=== PATIENT | female | born 1935 | race Caucasian/White ===

== ENCOUNTER → 2017-01-12 | Outpatient (CLI) | payer MEDICARE, BC ==
[2017-01-12 12:27] LABS: ANION GAP 17 (5-19); BLOOD UREA NITROGEN 17 mg/dL (7-20); CALCIUM 9.9 mg/dL (8.4-10.2); CARBON DIOXIDE 20 mmol/L (22-30); CHLORIDE 107 mmol/L (98-107); GLUCOSE 98 mg/dL (75-110); POTASSIUM 4.1 mmol/L (3.6-5.0); SODIUM 143.8 mmol/L (137-145)
== END ==
LOC: OD 10:52
PROVIDERS: ATTEND Internal Medicine Cardiovascular Disease
DX: Z79.899 Other long term (current) drug therapy (principal)
CPT/HCPCS: 36415; 80048; 83735

== ENCOUNTER → 2017-01-16 | Outpatient (CLI) | payer MEDICARE, BC ==
[2017-01-16 14:22] LABS: ANION GAP 16 (5-19); BLOOD UREA NITROGEN 17 mg/dL (7-20); CALCIUM 10.1 mg/dL (8.4-10.2); CARBON DIOXIDE 26 mmol/L (22-30); CHLORIDE 102 mmol/L (98-107); CREATININE RESULT 0.63 mg/dL (0.52-1.25); GLUCOSE 96 mg/dL (75-110); POTASSIUM 3.5 mmol/L (3.6-5.0); SODIUM 143.5 mmol/L (137-145)
[2017-01-16 14:39] LABS: ANION GAP 16 (5-19); BLOOD UREA NITROGEN 17 mg/dL (7-20); CALCIUM 10.1 mg/dL (8.4-10.2); CARBON DIOXIDE 26 mmol/L (22-30); CHLORIDE 102 mmol/L (98-107); CREATININE RESULT 0.63 mg/dL (0.52-1.25); GLUCOSE 96 mg/dL (75-110); POTASSIUM 3.5 mmol/L (3.6-5.0); SODIUM 143.5 mmol/L (137-145)
[2017-01-16 14:40] LABS: FREE T3 4.29 pg/mL (2.77-5.27)
[2017-01-16 14:54] LABS: THYROID STIMULATING HORMONE 0.15 uIU/mL (0.47-4.68)
[2017-01-16 15:08] LABS: FREE T3 4.29 pg/mL (2.77-5.27); THYROID STIMULATING HORMONE 0.15 uIU/mL (0.47-4.68)
== END ==
LOC: OD 12:45
PROVIDERS: ATTEND Internal Medicine Cardiovascular Disease
DX: E03.9 Hypothyroidism, unspecified (principal); R00.2 Palpitations
CPT/HCPCS: 80048; 83735; 84439; 84443; 84481

== ENCOUNTER → 2017-05-01 | Outpatient (CLI) | payer MEDICARE, BC ==
[2017-05-01 13:03] LABS: ALANINE AMINOTRANSFERASE 31 U/L (9-52); ALBUMIN 4.7 g/dL (3.5-5.0); ALKALINE PHOSPHATASE 73 U/L (38-126); ANION GAP 15 (5-19); ASPARTATE AMINO TRANSFERASE 28 U/L (14-36); BILIRUBIN,DIRECT 0.3 mg/dL (0.0-0.4); BILIRUBIN,TOTAL 0.7 mg/dL (0.2-1.3); BLOOD UREA NITROGEN 25 mg/dL (7-20); CALCIUM 9.7 mg/dL (8.4-10.2); CARBON DIOXIDE 25 mmol/L (22-30); CHLORIDE 104 mmol/L (98-107); CHOLESTEROL 225.44 mg/dL (0-200); CREATININE RESULT 0.67 mg/dL (0.52-1.25); Direct HDL 45 mg/dL (>40); GLUCOSE 106 mg/dL (75-110); POTASSIUM 3.7 mmol/L (3.6-5.0); SODIUM 143.6 mmol/L (137-145); TOTAL PROTEIN 7.8 g/dL (6.3-8.2); TRIGLYCERIDES 391 mg/dL (<150)
[2017-05-01 13:18] LABS: DIRECT LDL 35 mg/dL (<100)
[2017-05-01 13:24] LABS: VLDL CHOLESTEROL 78.2 mg/dL (10-31)
== END ==
LOC: OD 11:19
PROVIDERS: ATTEND Internal Medicine Cardiovascular Disease
DX: E78.2 Mixed hyperlipidemia (principal); E87.6 Hypokalemia; Z79.899 Other long term (current) drug therapy
CPT/HCPCS: 36415; 80048; 80061; 80076; 83735

== ENCOUNTER → 2017-07-12 | Outpatient (CLI) | payer MEDICARE, BC ==
[2017-07-12 15:05] LABS: HEMATOCRIT 39.6 % (36.0-47.0); HEMOGLOBIN 13.3 g/dL (12.0-15.5); HGB HCT DIFFERENCE 0.3; MEAN CORPUSCULAR HEMOGLOBIN 28.5 pg (27.0-33.4); MEAN CORPUSCULAR HGB CONC 33.7 g/dL (32.0-36.0); MEAN CORPUSCULAR VOLUME 85 fl (80-97); RED BLOOD COUNT 4.68 10^6/uL (3.72-5.28); RED CELL DISTRIBUTION WIDTH 14.6 % (11.5-14.0); WHITE BLOOD COUNT 6.9 10^3/uL (4.0-10.5)
[2017-07-12 15:31] LABS: ANION GAP 16 (5-19); BLOOD UREA NITROGEN 22 mg/dL (7-20); CALCIUM 9.7 mg/dL (8.4-10.2); CARBON DIOXIDE 21 mmol/L (22-30); CHLORIDE 106 mmol/L (98-107); CREATININE RESULT 0.58 mg/dL (0.52-1.25); GLUCOSE 95 mg/dL (75-110); POTASSIUM 4.2 mmol/L (3.6-5.0); SODIUM 142.7 mmol/L (137-145)
[2017-07-12 19:05] LABS: HEMOGLOBIN 13.3 g/dL (12.0-15.5); RED BLOOD COUNT 4.68 10^6/uL (3.72-5.28); WHITE BLOOD COUNT 6.9 10^3/uL (4.0-10.5)
[2017-07-12 19:06] LABS: HEMATOCRIT 39.6 % (36.0-47.0); HGB HCT DIFFERENCE 0.3; MEAN CORPUSCULAR HEMOGLOBIN 28.5 pg (27.0-33.4); MEAN CORPUSCULAR HGB CONC 33.7 g/dL (32.0-36.0); MEAN CORPUSCULAR VOLUME 85 fl (80-97); RED CELL DISTRIBUTION WIDTH 14.6 % (11.5-14.0)
[2017-07-12 19:09] LABS: ANISOCYTOSIS SLIGHT; BASOPHILS % (MANUAL) 0 % (0-2); EOSINOPHILS % (MANUAL) 2 % (0-6); LYMPHOCYTES % (MANUAL) 27 % (13-45); POIKILOCYTOSIS SLIGHT; TOTAL CELLS COUNTED 100; TOXIC GRANULATION SLIGHT
== END ==
LOC: OD 13:20
PROVIDERS: ATTEND Internal Medicine Cardiovascular Disease
DX: J18.0 Bronchopneumonia, unspecified organism (principal); R07.9 Chest pain, unspecified
CPT/HCPCS: 36415; 80048; 84484; 85025; 85027; 85652

== ENCOUNTER → 2017-12-04 | Outpatient (CLI) | payer MEDICARE, BC ==
[2017-12-04 13:55] LABS: ALANINE AMINOTRANSFERASE 32 U/L (9-52); ALBUMIN 4.6 g/dL (3.5-5.0); ALKALINE PHOSPHATASE 65 U/L (38-126); ANION GAP 12 (5-19); ASPARTATE AMINO TRANSFERASE 32 U/L (14-36); BILIRUBIN,DIRECT 0.5 mg/dL (0.0-0.4); BILIRUBIN,TOTAL 0.5 mg/dL (0.2-1.3); BLOOD UREA NITROGEN 20 mg/dL (7-20); CALCIUM 10.1 mg/dL (8.4-10.2); CARBON DIOXIDE 26 mmol/L (22-30); CHLORIDE 105 mmol/L (98-107); CHOLESTEROL 177.23 mg/dL (0-200); GLUCOSE 112 mg/dL (75-110); POTASSIUM 4.4 mmol/L (3.6-5.0); SODIUM 143.2 mmol/L (137-145); TOTAL PROTEIN 7.5 g/dL (6.3-8.2); TRIGLYCERIDES 256 mg/dL (<150)
[2017-12-04 14:06] LABS: DIRECT LDL 41 mg/dL (<100)
[2017-12-04 14:07] LABS: VLDL CHOLESTEROL 51.2 mg/dL (10-31)
== END ==
LOC: OD 11:32
PROVIDERS: ATTEND Internal Medicine Cardiovascular Disease
DX: E78.2 Mixed hyperlipidemia (principal); Z79.899 Other long term (current) drug therapy; E87.6 Hypokalemia
CPT/HCPCS: 36415; 80048; 80061; 80076

== ENCOUNTER → 2018-03-01 | Outpatient (CLI) | payer MEDICARE, BC ==
[2018-03-01 13:42] LABS: ANION GAP 17 (5-19); BLOOD UREA NITROGEN 38 mg/dL (7-20); CARBON DIOXIDE 28 mmol/L (22-30); CHLORIDE 99 mmol/L (98-107); GLUCOSE 110 mg/dL (75-110); POTASSIUM 3.6 mmol/L (3.6-5.0); SODIUM 143.7 mmol/L (137-145)
== END ==
LOC: OD 12:42
PROVIDERS: ATTEND Internal Medicine Cardiovascular Disease
DX: E87.6 Hypokalemia (principal)
CPT/HCPCS: 36415; 80048

== ENCOUNTER → 2018-06-19 | Outpatient (CLI) | payer MEDICARE, BC ==
[2018-06-19 10:18] LABS: ALANINE AMINOTRANSFERASE 27 U/L (9-52); ALBUMIN 4.3 g/dL (3.5-5.0); ALKALINE PHOSPHATASE 51 U/L (38-126); ANION GAP 12 (5-19); ASPARTATE AMINO TRANSFERASE 33 U/L (14-36); BILIRUBIN,DIRECT 0.5 mg/dL (0.0-0.4); BILIRUBIN,TOTAL 1.1 mg/dL (0.2-1.3); BLOOD UREA NITROGEN 26 mg/dL (7-20); CALCIUM 9.8 mg/dL (8.4-10.2); CARBON DIOXIDE 23 mmol/L (22-30); CHLORIDE 104 mmol/L (98-107); GLUCOSE 158 mg/dL (75-110); POTASSIUM 3.5 mmol/L (3.6-5.0); SODIUM 138.7 mmol/L (137-145); TRIGLYCERIDES 331 mg/dL (<150)
[2018-06-19 10:30] LABS: DIRECT LDL < 30 mg/dL (<100); VLDL CHOLESTEROL 66.2 mg/dL (10-31)
== END ==
LOC: OD 09:19
PROVIDERS: ATTEND Internal Medicine Cardiovascular Disease
DX: E78.2 Mixed hyperlipidemia (principal); I10 Essential (primary) hypertension; E11.9 Type 2 diabetes mellitus without complications; E87.6 Hypokalemia; Z79.899 Other long term (current) drug therapy
CPT/HCPCS: 36415; 80048; 80061; 80076

== ENCOUNTER → 2018-07-03 | Outpatient (CLI) | payer MEDICARE, BC ==
[2018-07-03 12:47] LABS: ANION GAP 14 (5-19); BLOOD UREA NITROGEN 26 mg/dL (7-20); CALCIUM 10.5 mg/dL (8.4-10.2); CARBON DIOXIDE 23 mmol/L (22-30); CHLORIDE 105 mmol/L (98-107); GLUCOSE 105 mg/dL (75-110); POTASSIUM 3.9 mmol/L (3.6-5.0); SODIUM 141.7 mmol/L (137-145)
== END ==
LOC: OD 11:15
PROVIDERS: ATTEND Internal Medicine Cardiovascular Disease
DX: I10 Essential (primary) hypertension (principal); E87.6 Hypokalemia
CPT/HCPCS: 36415; 80048

== ENCOUNTER → 2018-10-08 | Outpatient (CLI) | payer MEDICARE, BC ==
[2018-10-08 14:44] LABS: ALANINE AMINOTRANSFERASE 27 U/L (9-52); ALBUMIN 4.8 g/dL (3.5-5.0); ALKALINE PHOSPHATASE 69 U/L (38-126); ANION GAP 10 (5-19); ASPARTATE AMINO TRANSFERASE 28 U/L (14-36); BILIRUBIN,DIRECT 0.3 mg/dL (0.0-0.4); BILIRUBIN,TOTAL 0.7 mg/dL (0.2-1.3); BLOOD UREA NITROGEN 27 mg/dL (7-20); CARBON DIOXIDE 29 mmol/L (22-30); CHLORIDE 101 mmol/L (98-107); CHOLESTEROL 172.99 mg/dL (0-200); GLUCOSE 105 mg/dL (75-110); SODIUM 140.2 mmol/L (137-145); TOTAL PROTEIN 7.5 g/dL (6.3-8.2); TRIGLYCERIDES 325 mg/dL (<150)
[2018-10-08 14:55] LABS: DIRECT LDL 42 mg/dL (<100)
== END ==
LOC: OD 13:31
PROVIDERS: ATTEND Physician Assistant
DX: E78.2 Mixed hyperlipidemia (principal); Z79.899 Other long term (current) drug therapy; I10 Essential (primary) hypertension
CPT/HCPCS: 36415; 80048; 80061; 80076

== ENCOUNTER → 2019-04-03 | Outpatient (CLI) | payer MEDICARE, BC ==
[2019-04-03 10:21] LABS: HEMATOCRIT 41.4 % (36.0-47.0); HEMOGLOBIN 13.5 g/dL (12.0-15.5); MEAN CORPUSCULAR HEMOGLOBIN 27.2 pg (27.0-33.4); MEAN CORPUSCULAR HGB CONC 32.7 g/dL (32.0-36.0); MEAN CORPUSCULAR VOLUME 83 fl (80-97); PLATELET COUNT 267 10^3/uL (150-450); RED BLOOD COUNT 4.97 10^6/uL (3.72-5.28); RED CELL DISTRIBUTION WIDTH 16.6 % (11.5-14.0); WHITE BLOOD COUNT 9.2 10^3/uL (4.0-10.5)
[2019-04-03 10:55] LABS: ALANINE AMINOTRANSFERASE 29 U/L (9-52); ALBUMIN 4.5 g/dL (3.5-5.0); ALKALINE PHOSPHATASE 64 U/L (38-126); ANION GAP 10 (5-19); ASPARTATE AMINO TRANSFERASE 30 U/L (14-36); BILIRUBIN,DIRECT 0.4 mg/dL (0.0-0.4); BILIRUBIN,TOTAL 0.7 mg/dL (0.2-1.3); BLOOD UREA NITROGEN 22 mg/dL (7-20); CALCIUM 9.9 mg/dL (8.4-10.2); CARBON DIOXIDE 25 mmol/L (22-30); CHLORIDE 106 mmol/L (98-107); CHOLESTEROL 175.71 mg/dL (0-200); GLUCOSE 107 mg/dL (75-110); POTASSIUM 4.5 mmol/L (3.6-5.0); SODIUM 141.3 mmol/L (137-145); TOTAL PROTEIN 7.4 g/dL (6.3-8.2); TRIGLYCERIDES 330 mg/dL (<150)
[2019-04-03 11:06] LABS: DIRECT LDL 32 mg/dL (<100)
== END ==
LOC: OD 09:42
PROVIDERS: ATTEND Physician Assistant
DX: I10 Essential (primary) hypertension (principal); E78.2 Mixed hyperlipidemia; Z79.899 Other long term (current) drug therapy
CPT/HCPCS: 36415; 80048; 80061; 80076; 85027

== ENCOUNTER → 2019-10-11 | Outpatient (CLI) | payer MEDICARE, BC ==
[2019-10-11 13:14] LABS: ALBUMIN 4.6 g/dL (3.5-5.0); ALKALINE PHOSPHATASE 59 U/L (38-126); ANION GAP 10 (5-19); ASPARTATE AMINO TRANSFERASE 26 U/L (14-36); BILIRUBIN,DIRECT 0.2 mg/dL (0.0-0.4); BILIRUBIN,TOTAL 0.6 mg/dL (0.2-1.3); BLOOD UREA NITROGEN 25 mg/dL (7-20); CALCIUM 10.8 mg/dL (8.4-10.2); CARBON DIOXIDE 27 mmol/L (22-30); CHLORIDE 102 mmol/L (98-107); CHOLESTEROL 188.35 mg/dL (0-200); GLUCOSE 103 mg/dL (75-110); POTASSIUM 3.8 mmol/L (3.6-5.0); TOTAL PROTEIN 7.5 g/dL (6.3-8.2); TRIGLYCERIDES 302 mg/dL (<150)
[2019-10-11 13:24] LABS: DIRECT LDL 39 mg/dL (<100)
[2019-10-11 13:25] LABS: VLDL CHOLESTEROL 60.4 mg/dL (10-31)
== END ==
LOC: OD 12:00
PROVIDERS: ATTEND Internal Medicine Cardiovascular Disease
DX: I10 Essential (primary) hypertension (principal); R00.2 Palpitations; E78.2 Mixed hyperlipidemia; Z79.899 Other long term (current) drug therapy
CPT/HCPCS: 36415; 80048; 80061; 80076; 83735

== ENCOUNTER → 2020-02-21 | Outpatient (CLI) | payer MEDICARE, BC ==
[2020-02-21 12:22] LABS: ANION GAP 10 (5-19); BLOOD UREA NITROGEN 43 mg/dL (7-20); CALCIUM 10.6 mg/dL (8.4-10.2); CARBON DIOXIDE 26 mmol/L (22-30); CHLORIDE 103 mmol/L (98-107); GLUCOSE 113 mg/dL (75-110)
== END ==
LOC: OD 11:05
PROVIDERS: ATTEND Internal Medicine Cardiovascular Disease
DX: E03.9 Hypothyroidism, unspecified (principal); E55.9 Vitamin D deficiency, unspecified; E87.6 Hypokalemia; E83.52 Hypercalcemia
CPT/HCPCS: 36415; 80048; 82306; 84443

== ENCOUNTER → 2020-04-07 | Outpatient (CLI) | payer MEDICARE, BC ==
[2020-04-07 16:24] LABS: HEMATOCRIT 43.9 % (36.0-47.0); HEMOGLOBIN 14.7 g/dL (12.0-15.5); MEAN CORPUSCULAR HEMOGLOBIN 28.4 pg (27.0-33.4); MEAN CORPUSCULAR HGB CONC 33.5 g/dL (32.0-36.0); MEAN CORPUSCULAR VOLUME 85 fl (80-97); PLATELET COUNT 324 10^3/uL (150-450); RED BLOOD COUNT 5.19 10^6/uL (3.72-5.28); RED CELL DISTRIBUTION WIDTH 15.9 % (11.5-14.0); WHITE BLOOD COUNT 8.6 10^3/uL (4.0-10.5)
[2020-04-07 16:44] LABS: ANION GAP 11 (5-19); BLOOD UREA NITROGEN 36 mg/dL (7-20); CALCIUM 10.1 mg/dL (8.4-10.2); CARBON DIOXIDE 22 mmol/L (22-30); CHLORIDE 104 mmol/L (98-107); GLUCOSE 104 mg/dL (75-110); POTASSIUM 3.4 mmol/L (3.6-5.0)
== END ==
LOC: OD 15:03
PROVIDERS: ATTEND Internal Medicine Cardiovascular Disease
DX: E03.9 Hypothyroidism, unspecified (principal); R00.2 Palpitations; E11.9 Type 2 diabetes mellitus without complications; Z79.899 Other long term (current) drug therapy
CPT/HCPCS: 36415; 80048; 83036; 84443; 85027

== ENCOUNTER → 2020-04-13 | Outpatient (CLI) | payer MEDICARE, BC ==
[2020-04-13 09:44] LABS: HEMATOCRIT 43.6 % (36.0-47.0); HEMOGLOBIN 14.4 g/dL (12.0-15.5); MEAN CORPUSCULAR HEMOGLOBIN 28.4 pg (27.0-33.4); MEAN CORPUSCULAR VOLUME 86 fl (80-97); PLATELET COUNT 303 10^3/uL (150-450); RED BLOOD COUNT 5.07 10^6/uL (3.72-5.28); RED CELL DISTRIBUTION WIDTH 15.8 % (11.5-14.0); WHITE BLOOD COUNT 8.1 10^3/uL (4.0-10.5)
[2020-04-13 09:50] LABS: INTERNATIONAL RATION (INR) 0.96; PROTHROMBIN TIME 12.8 SEC (11.4-15.4)
[2020-04-13 09:51] LABS: PARTIAL THROMBOPLASTIN TIME 30.2 SEC (23.5-35.8)
[2020-04-13 10:01] LABS: ANION GAP 7 (5-19); BLOOD UREA NITROGEN 26 mg/dL (7-20); CALCIUM 11.1 mg/dL (8.4-10.2); CARBON DIOXIDE 23 mmol/L (22-30); CHLORIDE 110 mmol/L (98-107); GLUCOSE 105 mg/dL (75-110); POTASSIUM 4.5 mmol/L (3.6-5.0)
== END ==
LOC: OD 08:14
PROVIDERS: ATTEND Internal Medicine Cardiovascular Disease
DX: Z01.810 Encounter for preprocedural cardiovascular examination (principal); E87.6 Hypokalemia; E03.9 Hypothyroidism, unspecified; I10 Essential (primary) hypertension; R07.1 Chest pain on breathing; Z79.899 Other long term (current) drug therapy
CPT/HCPCS: 36415; 80048; 85027; 85610; 85730

== ENCOUNTER → 2020-05-19 | Outpatient (CLI) | payer MEDICARE, BC ==
[2020-05-19 12:07] LABS: HEMATOCRIT 42.1 % (36.0-47.0); HEMOGLOBIN 14.1 g/dL (12.0-15.5); MEAN CORPUSCULAR HEMOGLOBIN 28.4 pg (27.0-33.4); MEAN CORPUSCULAR HGB CONC 33.4 g/dL (32.0-36.0); MEAN CORPUSCULAR VOLUME 85 fl (80-97); PLATELET COUNT 295 10^3/uL (150-450); RED BLOOD COUNT 4.95 10^6/uL (3.72-5.28); RED CELL DISTRIBUTION WIDTH 16.1 % (11.5-14.0)
[2020-05-19 12:32] LABS: ALBUMIN 4.7 g/dL (3.5-5.0); ALKALINE PHOSPHATASE 62 U/L (38-126); ANION GAP 14 (5-19); ASPARTATE AMINO TRANSFERASE 25 U/L (14-36); BILIRUBIN,DIRECT 0.5 mg/dL (0.0-0.4); BILIRUBIN,TOTAL 0.7 mg/dL (0.2-1.3); BLOOD UREA NITROGEN 43 mg/dL (7-20); CALCIUM 10.4 mg/dL (8.4-10.2); CARBON DIOXIDE 22 mmol/L (22-30); CHLORIDE 106 mmol/L (98-107); GLUCOSE 128 mg/dL (75-110); POTASSIUM 3.6 mmol/L (3.6-5.0); TOTAL PROTEIN 7.7 g/dL (6.3-8.2)
== END ==
LOC: OD 11:33
PROVIDERS: ATTEND Internal Medicine Cardiovascular Disease
DX: E83.52 Hypercalcemia (principal); I10 Essential (primary) hypertension; R07.1 Chest pain on breathing; E87.6 Hypokalemia; Z79.899 Other long term (current) drug therapy
CPT/HCPCS: 36415; 80048; 80076; 82330; 83970; 85027